=== PATIENT | female | born 1995 ===

== ENCOUNTER 2017-03-01 18:58 | Emergency (ER) | payer MEDICAID ==
[2017-03-01 19:09] VITALS: BP 136/82; PULSE 71; RESP 16; TEMP 99.2; O2SAT 99
[2017-03-01] MEDS ORDERED: Sodium Chloride 0.9% 1,000 ML IV STA (19:25)
--- NOTE | 2017-03-01 19:29 | ED PDOC ---
HPI: General Adult Time Seen by Provider: 03/01/17 19:17 Chief Complaint (Nursing): Abdominal Pain History Per: Patient Additional Complaint(s): Pt. states 2 hours [employer] she developed a sudden onset of L sided flank pain. Reports symptoms are worse with movement and with deep inspiration. States pain starts in LLQ and radiates upwards toward her back. Pain has been constant and is unrelated to alleviating or exacerbating factors. Denies hematuria, dysuria, fever, SOB, chest pain, trauma, N/V/D, fever, hx of kidney stones. Past Medical History Reviewed: Historical Data, Nursing Documentation, Vital Signs Vital Signs: Last Vital Signs Temp 99.2 F 03/01/17 19:06 Pulse 71 03/01/17 19:06 Resp 16 03/01/17 19:06 BP 136/82 03/01/17 19:06 Pulse Ox 99 03/01/17 22:23 - Family History Family History: States: No Known Family Hx - Immunization History Hx Tetanus Toxoid Vaccination: No Hx Influenza Vaccination: Yes (11/2016) Hx Pneumococcal Vaccination: No - Home Medications Home Medications: Ambulatory Orders Medication Instructions Recorded No Known Home Med 02/03/17 - Allergies Allergies/Adverse Reactions: Allergies Allergy/AdvReac Type Severity Reaction Status Date / Time No Known Allergies Allergy Verified 02/03/17 16:52 Review of Systems ROS Statement: Except As Marked, All Systems Reviewed And Found Negative Physical Exam - Physical Exam Appears: Positive for: Well, Non-toxic, No Acute Distress Skin: Positive for: Normal Color, Warm. Negative for: Rash Eye Exam: Positive for: Normal appearance Neck: Positive for: Normal, Painless ROM Cardiovascular/Chest: Positive for: Regular Rate, Rhythm Respiratory: Positive for: CNT, Normal Breath Sounds Gastrointestinal/Abdominal: Positive for: Normal Exam, Bowel Sounds, Soft. Negative for: Tenderness (to deep palpation) Back: Positive for: Normal Inspection. Negative for: L CVA Tenderness, R CVA Tenderness, Vertebral Tenderness Extremity: Positive for: Normal ROM Neurologic/Psych: Positive for: Alert, Oriented - Laboratory Results Result Diagrams: 03/01/17 20:00 03/01/17 20:22 Urine POC: Negative Urine dip results: Positive for: Leukocyte Esterase (moderate), Blood (moderate) . Negative for: Nitrate, Ketones, Glucose, Bilirubin, Protein - ECG O2 Sat by Pulse Oximetry: 99 - Progress ED Course And Treament: Labs ordered. Toradol 30mg IV, IV NS bolus ordered. 1999 Urine dip: +leuks, +blood. CT abd/pelvis w/o contrast, UA ordered. Pt. informed of results and agrees with plan. Reports pain is improving. 2037 WBC: 18.7 UA: large leuks, moderate blood, no nitrates. VBG, blood culture x 2, rocephin 1gm IV ordered. Informed of results. Pt. states her PMD is Dr. Lloyd Gonzalez. 2214 CT abd/pelvis w/o contrast: 1. No CT evidence of urolithiasis. 2. Probable LEFT adnexal cyst. Possible RIGHT ovarian cyst. Consider ultrasound. 3. Mild colitis versus underdistention. Clinical correlation is needed. 4. Incidental/non-acute findings are described above. Case d/w Dr. Luna who recommends US. Pelvic US ordered. Pt. informed of results. States pain has completely resolved. Disposition - Clinical Impression Clinical Impression: Flank pain, UTI (urinary tract infection) - Patient ED Disposition Is Patient to be Admitted: Transfer of Care (Signed out to Rubio VOGT pending US results and final disposition.) - Disposition Disposition Time: 00:00 Condition: STABLE Forms: [employer] (Kazakh)
[2017-03-01 20:08] LABS: BASO # 0.1 K/uL (0.0-0.2); BASO % 0.4 % (0.0-2.0); EOS # 0.3 K/uL (0.0-0.7); EOS % 1.7 % (0.0-4.0); HEMATOCRIT 38.6 % (34.0-47.0); LYMPH # 3.2 K/uL (1.0-4.3); LYMPH % 17.3 % (20.0-40.0); MEAN CELL VOLUME 82.2 fl (81.0-99.0); MEAN CORPUSCULAR HEMOGLOBIN 27.1 pg (27.0-31.0); MONO # 1.2 K/uL (0.0-0.8); MONO % 6.6 % (0.0-10.0); NEUT # 13.9 K/uL (1.8-7.0); NRBC % 0.1 % (0.0-0.0); RED CELL DISTRIBUTION WIDTH 14.6 % (11.5-14.5); WHITE BLOOD COUNT 18.7 K/uL (4.8-10.8)
[2017-03-01 20:30] LABS: RBC URINE 9 /hpf (0-3); URINE BACTERIA RARE (<OCC); URINE BILIRUBIN NEGATIVE (NEGATIVE); URINE BLOOD MODERATE (NEGATIVE); URINE COLOR STRAW (YELLOW); URINE GLUCOSE (UA) NEG (Normal); URINE KETONE NEGATIVE (NEGATIVE); URINE LEUKOCYTE ESTERASE LARGE Leu/uL (Negative); URINE PROTEIN NEGATIVE (NEGATIVE); URINE UROBILINOGEN 0.2-1.0 mg/dL (0.2-1.0); WBC URINE 81 /hpf (0-5)
[2017-03-01 20:35] LABS: ALB/GLOB RATIO 1.3 (1.0-2.1); ALKALINE PHOSPHATASE 99 U/L (38-126); ALT/SGPT 31 U/L (9-52); AST/SGOT 25 U/L (14-36); BILIRUBIN,TOTAL 0.4 mg/dl (0.2-1.3); BLOOD UREA NITROGEN 7 mg/dl (7-17); CALCIUM 8.7 mg/dL (8.4-10.2); CARBON DIOXIDE 25 mmol/L (22-30); CHLORIDE 104 mmol/L (98-107); GFR AFRICAN-AMERICAN > 60; GLUCOSE,RANDOM 88 mg/dL (65-105); POTASSIUM 3.9 MMOL/L (3.6-5.0); SODIUM 144 mmol/l (132-148); TOTAL PROTEIN 7.8 G/DL (6.3-8.2)
[2017-03-01 21:06] LABS: VENOUS BLOOD GAS BASE EXCESS -0.2 mmol/L (0.0-2.0); VENOUS BLOOD GAS PCO2 50 mmHg (40-60); VENOUS BLOOD PH 7.33 (7.32-7.43)
--- NOTE | 2017-03-01 22:09 | CT ---
EXAM: CT Abdomen and Pelvis Without Intravenous Contrast CLINICAL HISTORY: 22 years old, female; Pain; Abdominal pain; Flank; Left; Patient HX: Flank pain, hematuria. HX of k stone? TECHNIQUE: Axial computed tomography images of the abdomen and pelvis without intravenous contrast. All CT scans at this facility use one or more dose reduction techniques, viz.: automated exposure control; ma/kV adjustment per patient size (including targeted exams where dose is matched to indication; i.e. head); or iterative reconstruction technique. Coronal and sagittal reformatted images were created and reviewed. COMPARISON: No relevant prior studies available. FINDINGS: Lower thorax: No acute findings. ABDOMEN: Liver: Unremarkable. Gallbladder and bile ducts: No calcified stones. No ductal dilation. Pancreas: Unremarkable. No ductal dilation. Spleen: No splenomegaly. Adrenals: No mass. Kidneys and ureters: No renal calculi. No hydronephrosis. Stomach and bowel: Mild mural thickening vs underdistention of descending, sigmoid colon. No associated inflammatory stranding. No obstruction. Appendix: Normal caliber. No inflammation. PELVIS: Bladder: Unremarkable. No stones. Reproductive: Apparent 1.8 x 1.8 x 1.4 cm hypodense lesion within RIGHT ovary. 1.5 x 1.4 x 1.6 cm hypodense lesion within LEFT adnexal region. ABDOMEN and PELVIS: Intraperitoneal space: Probable trace free fluid within pelvis. No free air. Bones/joints: No acute fracture. Soft tissues: Tiny umbilical hernia containing fat. Vasculature: Unremarkable. No aneurysm. Lymph nodes: No pathologically enlarged lymph nodes. IMPRESSION: 1. No CT evidence of urolithiasis. 2. Probable LEFT adnexal cyst. Possible RIGHT ovarian cyst. Consider ultrasound. 3. Mild colitis versus underdistention. Clinical correlation is needed. 4. Incidental/non-acute findings are described above.
[2017-03-01] MEDS ORDERED: cefTRIAXone (Rocephin) 1 gm Inj ONE (22:13)
--- NOTE | 2017-03-02 00:02 | ED PDOC ---
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 US: FINDINGS: Uterus/cervix: Uterus measures 9.2 x 3.5 x 4.5 cm in size. No myometrial mass. Endometrium: 0.5 cm in thickness. Right ovary: 3.5 x 2.3 x 2.3 cm in size. 1.6 x 1.8 x 1.4 cm anechoic lesion. Normal flow. Left ovary: 4.2 x 2.1 x 1.9 cm in size. No mass. Normal flow. Free fluid: No significant free fluid. Bladder: Unremarkable as visualized. IMPRESSION: 1. RIGHT ovarian cyst. She does wear of all diagnostic testing results. She states the pain is improved after Toradol was given. Will d/c with rx levaquin and motrin. Dx: UTI, pyelonephritis. Patient was instructed to follow up in 2-3 days with primary doctor and is aware she can return to emergency department at any time if acutely worse. Disposition Counseled Patient/Family Regarding: Studies Performed, Diagnosis, Need For Followup, Rx Given - Clinical Impression Clinical Impression: Flank pain, UTI (urinary tract infection), Pyelonephritis, Right ovarian cyst - POA Present On Arrival: None - Disposition Referrals: Lloyd Gonzalez MD [Family Provider] - Disposition: Routine/Home Disposition Time: 00:15 Condition: IMPROVED Additional Instructions: Take prescription medications as directed. Drink plenty of fluids. Follow-up with primary doctor in 2-3 days. Prescriptions: Ibuprofen [Motrin] 600 mg PO Q6 PRN #15 tab PRN Reason: Pain, Moderate (4-7) Levofloxacin [Levaquin] 500 mg PO DAILY #7 tablet Instructions: Urinary Tract Infection in Women (ED), Acute Pyelonephritis (ED) , Flank Pain (ED), Ovarian Cyst (ED) Forms: [employer] (Italian) Results - Lab Results Lab Results: 03/01/17 03/01/17 03/01/17 21:00 20:22 20:00 WBC RBC Hgb Hct MCV MCH MCHC RDW Plt Count MPV Neut % (Auto) Lymph % (Auto) [place] % (Auto) Eos % (Auto) Baso % (Auto) Neut # Lymph # [place] # Eos # Baso # pO2 20 L VBG pH 7.33 VBG pCO2 50 VBG HCO3 22.9 VBG Total CO2 27.9 VBG O2 Sat (Calc) 35.5 L VBG Base Excess -0.2 L VBG Potassium 3.7 Glucose 80 Lactate 1.7 FiO2 21.0 Sodium 140.0 144 Potassium 3.9 Chloride 112.0 H 104 Carbon Dioxide 25 Anion Gap 19 BUN 7 Creatinine 0.5 L Est GFR ( Amer) > 60 Est GFR (Non-Af Amer) > 60 Random Glucose 88 Calcium 8.7 Total Bilirubin 0.4 AST 25 ALT 31 Alkaline Phosphatase 99 Total Protein 7.8 Albumin 4.4 Globulin 3.4 Albumin/Globulin Ratio 1.3 Venous Blood Potassium 3.7 Urine Color Straw Urine Clarity Slighty-cloudy Urine pH 6.0 Ur Specific [place] 1.009 Urine Protein Negative Urine Glucose (UA) Neg Urine Ketones Negative Urine Blood Moderate Urine Nitrate Negative Urine Bilirubin Negative Urine Urobilinogen 0.2-1.0 Ur Leukocyte Esterase Large Urine RBC (Auto) 9 H Urine Microscopic WBC 81 H Ur Squamous Epith Cells 2 Urine Bacteria Rare Urine Yeast (Budding) Occ H 03/01/17 20:00 WBC 18.7 H RBC 4.70 Hgb 12.7 Hct 38.6 MCV 82.2 MCH 27.1 MCHC 33.0 RDW 14.6 H Plt Count 283 MPV 10.0 Neut % (Auto) 74.0 Lymph % (Auto) 17.3 L [place] % (Auto) 6.6 Eos % (Auto) 1.7 Baso % (Auto) 0.4 Neut # 13.9 H Lymph # 3.2 [place] # 1.2 H Eos # 0.3 Baso # 0.1 pO2 VBG pH VBG pCO2 VBG HCO3 VBG Total CO2 VBG O2 Sat (Calc) VBG Base Excess VBG Potassium Glucose Lactate FiO2 Sodium Potassium Chloride Carbon Dioxide Anion Gap BUN Creatinine Est GFR ( Amer) Est GFR (Non-Af Amer) Random Glucose Calcium Total Bilirubin AST ALT Alkaline Phosphatase Total Protein Albumin Globulin Albumin/Globulin Ratio Venous Blood Potassium Urine Color Urine Clarity Urine pH Ur Specific [place] Urine Protein Urine Glucose (UA) Urine Ketones Urine Blood Urine Nitrate Urine Bilirubin Urine Urobilinogen Ur Leukocyte Esterase Urine RBC (Auto) Urine Microscopic WBC Ur Squamous Epith Cells Urine Bacteria Urine Yeast (Budding)
--- NOTE | 2017-03-02 00:07 | US ---
EXAM: US Pelvis Complete, Transabdominal CLINICAL HISTORY: 22 years old, female; Pain; Abdominal pain; Other: Lt flank; Additional info: Possible b/l adnexal cysts TECHNIQUE: Real-time transabdominal pelvic ultrasound (complete) with image documentation. COMPARISON: CT - ABD PELVIS W/O PO OR 03/01/2017 9:12:11 PM FINDINGS: Uterus/cervix: Uterus measures 9.2 x 3.5 x 4.5 cm in size. No myometrial mass. Endometrium: 0.5 cm in thickness. Right ovary: 3.5 x 2.3 x 2.3 cm in size. 1.6 x 1.8 x 1.4 cm anechoic lesion. Normal flow. Left ovary: 4.2 x 2.1 x 1.9 cm in size. No mass. Normal flow. Free fluid: No significant free fluid. Bladder: Unremarkable as visualized. IMPRESSION: 1. RIGHT ovarian cyst.
== END 2017-03-02 00:20 | disposition home or self-care (01) ==
LOC: H.ER 18:58
DX: N39.0 Urinary tract infection, site not specified (principal); R10.9 Unspecified abdominal pain; N12 Tubulo-interstitial nephritis, not specified as acute or chronic; N83.201 Unspecified ovarian cyst, right side
CPT/HCPCS: 74176; 76856; 80053; 81003; 81025; 82803; 85025; 87040; 87086; 96374; 99282; J0696; J1885; J7040